=== PATIENT | female | born 1930 | race Caucasian/White ===

== ENCOUNTER 2018-07-25 01:02 | Inpatient (IN) | payer MEDICARE, BC ==
[2018-07-25 02:02] LABS: BASO % 0.5 % (0.0-1.0); EOS # 0.2 10^3/uL (0.0-0.50); EOS % 1.7 % (0.0-3.0); HEMATOCRIT 31.8 % (36.0-47.0); HEMOGLOBIN 10.6 g/dl (12.0-15.5); LYMPH # 1.6 10^3/uL (1.5-4.5); LYMPH % 18.1 % (24.0-44.0); MEAN CORPUSCULAR HEMOGLOBIN 34.6 pg (27.0-33.0); MEAN CORPUSCULAR HGB CONC 33.3 g/dl (32.0-36.5); MEAN CORPUSCULAR VOLUME 103.9 fl (80.0-96.0); MONO # 0.6 10^3/uL (0.0-0.8); MONO % 6.4 % (0.0-5.0); NEUTROPHILS # 6.4 10^3/uL (1.8-7.7); NEUTROPHILS % 72.3 % (36.0-66.0); PLATELET COUNT, AUTOMATED 132 10^3/uL (150-450); RED BLOOD COUNT 3.06 10^6/uL (4.00-5.40); RED CELL DISTRIBUTION WIDTH 15.2 % (11.5-14.5); WHITE BLOOD COUNT 8.8 10^3/uL (4.0-10.0)
[2018-07-25 02:07] LABS: VENOUS BASE EXCESS 1.4 (-2.0-2.0); VENOUS HCO3 24.8 MEQ/L (23.0-27.0); VENOUS O2 SATURATION 98.3 % (60.0-80.0); VENOUS PARTIAL PRESSURE CO2 35.2 mmHg (38.0-50.0); VENOUS PH 7.466 UNITS (7.330-7.430); VENOUS STANDARD HCO3 25.7 MEQ/L; VENOUS TOTAL CO2 25.9 MEQ/L (24.0-28.0)
[2018-07-25 02:13] LABS: BEDSIDE GLUCOSE 147 MG/DL (83-110)
[2018-07-25 02:30] LABS: LACTIC ACID SEPSIS PROTOCOL 1.8 MMOL/L (0.4-2.0)
[2018-07-25 03:16] LABS: KETONE, URINE AUTO RFX NEGATIVE (NEGATIVE); MUCUS, URINE RFX SMALL (NEGATIVE); RBC, URINE AUTO RFX 5 /HPF (0-3); SPECIFIC GRAVITY UR AUTO RFX 1.017 (1.002-1.035); SQUAM EPITHELIAL CELL UR AURFX 24 /HPF (0-6)
[2018-07-25 03:17] LABS: AMPHETAMINES LEVEL URINE NEGATIVE (NEGATIVE); BARBITURATES URINE NEGATIVE (NEGATIVE); BENZODIAZEPINES URINE NEGATIVE (NEGATIVE); CANNABINOIDS URINE NEGATIVE (NEGATIVE); COCAINE METABOLITE URINE NEGATIVE (NEGATIVE); LEUKOCYTE ESTERASE UR AUTO RFX 2+ (NEGATIVE); METHADONE URINE NEGATIVE (NEGATIVE); NITRITE, URINE AUTO RFX POSITIVE (NEGATIVE); OPIATES URINE NEGATIVE (NEGATIVE); PHENCYCLIDINE URINE NEGATIVE (NEGATIVE); WBC, URINE AUTO RFX 55 /HPF (0-3)
[2018-07-25 03:19] LABS: ACETAMINOPHEN LEVEL < 2.0 UG/ML (10.0-30.0); ALBUMIN/GLOBULIN RATIO 1.03 (1.00-1.93); ALKALINE PHOSPHATASE 60 U/L (45-117); ALT/SGPT 29 U/L (12-78); ANION GAP 9 MEQ/L (8-16); AST/SGOT 41 U/L (7-37); BILIRUBIN,DIRECT 0.1 MG/DL (0.0-0.2); BILIRUBIN,TOTAL 0.4 MG/DL (0.2-1.0); BLOOD UREA NITROGEN 26 MG/DL (7-18); CALCIUM LEVEL 8.2 MG/DL (8.8-10.2); CARBON DIOXIDE LEVEL 26 MEQ/L (21-32); CHLORIDE LEVEL 106 MEQ/L (98-107); CPK CREATINE PHOSPHOKINASE 325 U/L (26-192); CREATININE FOR GFR 1.51 MG/DL (0.55-1.30); ETHYL ALCOHOL (ETHANOL) < 0.003 % (0.000-0.010); GLOMERULAR FILTRATION RATE 34.6 (>32); GLUCOSE, FASTING 144 MG/DL (70-100); POTASSIUM SERUM 4.1 MEQ/L (3.5-5.1); SALICYLATE LEVEL < 1.7 MG/DL (5.0-30.0); SODIUM LEVEL 141 MEQ/L (136-145); TOTAL PROTEIN 5.9 GM/DL (6.4-8.2); TROPONIN I 0.05 NG/ML (< 0.10)
[2018-07-25] MEDS: NS 1,000 ML IV (03:45)
[2018-07-25 04:15] LABS: CK-MB VALUE MASS 3.7 NG/ML (<3.6); MB/CK RELATIVE INDEX 1.13 (< OR =4); OSMOLALITY SERUM 291 MOSM/KG (280-301)
[2018-07-25] MEDS: cefTRIAXone SOD 1 GM in D5W MINI-BAG PLUS 50 ML IV (04:19)
[2018-07-25 06:45] LABS: FREE T4 1.51 NG/DL (0.76-1.46)
[2018-07-25] MEDS: LEVOTHYROXINE 100MCG TABLET (0.1MG) PO (08:40)
[2018-07-25] MEDS: FUROSEMIDE 20 MG TAB PO (09:00)
[2018-07-25] MEDS: ALLOPURINOL 300 MG TAB PO (11:00)
[2018-07-25] MEDS: ASPIRIN 81 MG ENTERIC TAB PO (11:00)
[2018-07-25] MEDS: APIXABAN 2.5 MG TAB (ELIQUIS) PO ×2 (11:00→21:09)
[2018-07-25] MEDS: **hydrALAZINE HCL** 25 MG TAB PO ×2 (11:03→21:10)
[2018-07-25] MEDS: ACETAMINOPHEN TAB 650MG DOSE (2X325MG) PO ×2 (18:00→21:12)
[2018-07-25] MEDS: ATORVASTATIN 20 MG TAB PO (21:09)
[2018-07-26] MEDS: LEVOTHYROXINE 100MCG TABLET (0.1MG) PO (05:37)
[2018-07-26] MEDS: cefTRIAXone SOD 1 GM in D5W MINI-BAG PLUS 50 ML IV (05:37)
[2018-07-26 07:24] LABS: HEMATOCRIT 27.6 % (36.0-47.0); HEMOGLOBIN 9.1 g/dl (12.0-15.5); MEAN CORPUSCULAR HEMOGLOBIN 34.2 pg (27.0-33.0); MEAN CORPUSCULAR VOLUME 103.8 fl (80.0-96.0); PLATELET COUNT, AUTOMATED 123 10^3/uL (150-450); RED BLOOD COUNT 2.66 10^6/uL (4.00-5.40); RED CELL DISTRIBUTION WIDTH 15.3 % (11.5-14.5)
[2018-07-26 07:40] LABS: ANION GAP 6 MEQ/L (8-16); BLOOD UREA NITROGEN 21 MG/DL (7-18); CARBON DIOXIDE LEVEL 28 MEQ/L (21-32); CHLORIDE LEVEL 107 MEQ/L (98-107); CREATININE FOR GFR 1.47 MG/DL (0.55-1.30); GLOMERULAR FILTRATION RATE 35.7 (>32); GLUCOSE, FASTING 92 MG/DL (70-100); POTASSIUM SERUM 3.8 MEQ/L (3.5-5.1); SODIUM LEVEL 141 MEQ/L (136-145)
[2018-07-26] MEDS: APIXABAN 2.5 MG TAB (ELIQUIS) PO ×2 (08:54→20:05)
[2018-07-26] MEDS: ALLOPURINOL 300 MG TAB PO (08:54)
[2018-07-26] MEDS: ASPIRIN 81 MG ENTERIC TAB PO (08:54)
[2018-07-26] MEDS: INFLUENZA QUADRIVALENT PF VACCINE 0.5ML SYRINGE (90686) IM (08:55)
[2018-07-26] MEDS: ACETAMINOPHEN TAB 650MG DOSE (2X325MG) PO ×2 (14:09→20:05)
[2018-07-26] MEDS: ATORVASTATIN 20 MG TAB PO (20:05)
[2018-07-27] MEDS: cefTRIAXone SOD 1 GM in D5W MINI-BAG PLUS 50 ML IV (05:16)
[2018-07-27] MEDS: LEVOTHYROXINE 100MCG TABLET (0.1MG) PO (05:16)
[2018-07-27 07:12] LABS: HEMATOCRIT 27.8 % (36.0-47.0); HEMOGLOBIN 9.2 g/dl (12.0-15.5); MEAN CORPUSCULAR HEMOGLOBIN 33.8 pg (27.0-33.0); MEAN CORPUSCULAR HGB CONC 33.1 g/dl (32.0-36.5); MEAN CORPUSCULAR VOLUME 102.2 fl (80.0-96.0); PLATELET COUNT, AUTOMATED 146 10^3/uL (150-450); RED BLOOD COUNT 2.72 10^6/uL (4.00-5.40); RED CELL DISTRIBUTION WIDTH 15.5 % (11.5-14.5); WHITE BLOOD COUNT 6.2 10^3/uL (4.0-10.0)
[2018-07-27 07:25] LABS: ANION GAP 6 MEQ/L (8-16); BLOOD UREA NITROGEN 18 MG/DL (7-18); CALCIUM LEVEL 8.2 MG/DL (8.8-10.2); CARBON DIOXIDE LEVEL 26 MEQ/L (21-32); CHLORIDE LEVEL 110 MEQ/L (98-107); CREATININE FOR GFR 1.38 MG/DL (0.55-1.30); GLOMERULAR FILTRATION RATE 38.4 (>32); GLUCOSE, FASTING 86 MG/DL (70-100); POTASSIUM SERUM 4.1 MEQ/L (3.5-5.1); SODIUM LEVEL 142 MEQ/L (136-145)
[2018-07-27] MEDS ORDERED: E-Z-HD 98% w/w 340GM SUSP BTL As Ordered (09:03)
[2018-07-27] MEDS: ACETAMINOPHEN TAB 650MG DOSE (2X325MG) PO ×3 (09:03→20:16)
[2018-07-27] MEDS ORDERED: E-Z-PAQUE 96% w/w SUSP 176GM BTL As Ordered (09:03)
[2018-07-27] MEDS ORDERED: E-Z-GAS II EFFERVESCENT PACKET (SODIUM BICARB./CITRIC ACID/SIMETHICONE) As Ordered (09:03)
[2018-07-27] MEDS: APIXABAN 2.5 MG TAB (ELIQUIS) PO ×2 (09:03→20:16)
[2018-07-27] MEDS: ALLOPURINOL 300 MG TAB PO (09:03)
[2018-07-27] MEDS: ASPIRIN 81 MG ENTERIC TAB PO (09:04)
[2018-07-27] MEDS: SENOKOT S TAB PO ×2 (11:35→20:16)
[2018-07-27] MEDS: ATORVASTATIN 20 MG TAB PO (20:16)
[2018-07-28] MEDS: LEVOTHYROXINE 100MCG TABLET (0.1MG) PO (05:58)
[2018-07-28 05:59] LABS: HEMATOCRIT 29.4 % (36.0-47.0); HEMOGLOBIN 9.5 g/dl (12.0-15.5); MEAN CORPUSCULAR HEMOGLOBIN 34.1 pg (27.0-33.0); MEAN CORPUSCULAR HGB CONC 32.3 g/dl (32.0-36.5); MEAN CORPUSCULAR VOLUME 105.4 fl (80.0-96.0); PLATELET COUNT, AUTOMATED 155 10^3/uL (150-450); RED BLOOD COUNT 2.79 10^6/uL (4.00-5.40); RED CELL DISTRIBUTION WIDTH 15.4 % (11.5-14.5); WHITE BLOOD COUNT 6.8 10^3/uL (4.0-10.0)
[2018-07-28] MEDS: cefTRIAXone SOD 1 GM in D5W MINI-BAG PLUS 50 ML IV (06:03)
[2018-07-28 06:07] LABS: ANION GAP 8 MEQ/L (8-16); BLOOD UREA NITROGEN 16 MG/DL (7-18); CALCIUM LEVEL 8.3 MG/DL (8.8-10.2); CARBON DIOXIDE LEVEL 26 MEQ/L (21-32); CHLORIDE LEVEL 110 MEQ/L (98-107); CREATININE FOR GFR 1.28 MG/DL (0.55-1.30); GLOMERULAR FILTRATION RATE 41.9 (>32); GLUCOSE, FASTING 89 MG/DL (70-100); POTASSIUM SERUM 4.2 MEQ/L (3.5-5.1); SODIUM LEVEL 144 MEQ/L (136-145)
[2018-07-28] MEDS: ALLOPURINOL 300 MG TAB PO (10:32)
[2018-07-28] MEDS: SENOKOT S TAB PO ×2 (10:32→21:22)
[2018-07-28] MEDS: APIXABAN 2.5 MG TAB (ELIQUIS) PO ×2 (10:34→21:22)
[2018-07-28] MEDS: ASPIRIN 81 MG ENTERIC TAB PO (10:34)
[2018-07-28] MEDS: ACETAMINOPHEN TAB 650MG DOSE (2X325MG) PO ×2 (10:35→23:55)
[2018-07-28] MEDS: MIRALAX *UNIT DOSE* 17GM PACKET PO (11:53)
[2018-07-28] MEDS: amLODIPine 5 MG TAB PO (11:55)
[2018-07-28] MEDS: **hydrALAZINE HCL** 25 MG TAB PO ×2 (11:55→21:22)
[2018-07-28] MEDS: ATORVASTATIN 20 MG TAB PO (21:22)
[2018-07-29] MEDS: cefTRIAXone SOD 1 GM in D5W MINI-BAG PLUS 50 ML IV (05:29)
[2018-07-29] MEDS: LEVOTHYROXINE 100MCG TABLET (0.1MG) PO (05:29)
[2018-07-29 06:44] LABS: HEMATOCRIT 27.7 % (36.0-47.0); HEMOGLOBIN 9.1 g/dl (12.0-15.5); MEAN CORPUSCULAR HEMOGLOBIN 34.3 pg (27.0-33.0); MEAN CORPUSCULAR HGB CONC 32.9 g/dl (32.0-36.5); MEAN CORPUSCULAR VOLUME 104.5 fl (80.0-96.0); PLATELET COUNT, AUTOMATED 163 10^3/uL (150-450); RED BLOOD COUNT 2.65 10^6/uL (4.00-5.40); RED CELL DISTRIBUTION WIDTH 15.4 % (11.5-14.5); WHITE BLOOD COUNT 6.2 10^3/uL (4.0-10.0)
[2018-07-29 06:57] LABS: ANION GAP 10 MEQ/L (8-16); BLOOD UREA NITROGEN 16 MG/DL (7-18); CARBON DIOXIDE LEVEL 24 MEQ/L (21-32); CHLORIDE LEVEL 111 MEQ/L (98-107); CREATININE FOR GFR 1.32 MG/DL (0.55-1.30); GLOMERULAR FILTRATION RATE 40.4 (>32); GLUCOSE, FASTING 80 MG/DL (70-100); POTASSIUM SERUM 4.5 MEQ/L (3.5-5.1); SODIUM LEVEL 145 MEQ/L (136-145)
[2018-07-29] MEDS: SENOKOT S TAB PO ×2 (09:19→21:05)
[2018-07-29] MEDS: amLODIPine 5 MG TAB PO (09:19)
[2018-07-29] MEDS: APIXABAN 2.5 MG TAB (ELIQUIS) PO ×2 (09:19→21:05)
[2018-07-29] MEDS: ASPIRIN 81 MG ENTERIC TAB PO (09:20)
[2018-07-29] MEDS: **hydrALAZINE HCL** 25 MG TAB PO ×2 (09:20→21:05)
[2018-07-29] MEDS: ALLOPURINOL 300 MG TAB PO (09:20)
[2018-07-29] MEDS: FLEET ENEMA PR (15:34)
[2018-07-29] MEDS: ACETAMINOPHEN TAB 650MG DOSE (2X325MG) PO (15:34)
[2018-07-29] MEDS: ATORVASTATIN 20 MG TAB PO (21:05)
[2018-07-30] MEDS: LEVOTHYROXINE 100MCG TABLET (0.1MG) PO (05:13)
[2018-07-30 06:00] LABS: HEMATOCRIT 27.6 % (36.0-47.0); HEMOGLOBIN 9.3 g/dl (12.0-15.5); MEAN CORPUSCULAR HEMOGLOBIN 34.1 pg (27.0-33.0); MEAN CORPUSCULAR HGB CONC 33.7 g/dl (32.0-36.5); MEAN CORPUSCULAR VOLUME 101.1 fl (80.0-96.0); PLATELET COUNT, AUTOMATED 190 10^3/uL (150-450); RED BLOOD COUNT 2.73 10^6/uL (4.00-5.40); RED CELL DISTRIBUTION WIDTH 15.3 % (11.5-14.5)
[2018-07-30 06:17] LABS: ANION GAP 9 MEQ/L (8-16); BLOOD UREA NITROGEN 24 MG/DL (7-18); CALCIUM LEVEL 8.2 MG/DL (8.8-10.2); CARBON DIOXIDE LEVEL 25 MEQ/L (21-32); CHLORIDE LEVEL 109 MEQ/L (98-107); CREATININE FOR GFR 1.38 MG/DL (0.55-1.30); GLOMERULAR FILTRATION RATE 38.4 (>32); GLUCOSE, FASTING 92 MG/DL (70-100); POTASSIUM SERUM 4.2 MEQ/L (3.5-5.1); SODIUM LEVEL 143 MEQ/L (136-145)
[2018-07-30] MEDS: ACETAMINOPHEN TAB 650MG DOSE (2X325MG) PO ×3 (08:11→23:20)
[2018-07-30] MEDS: SENOKOT S TAB PO ×2 (08:11→21:20)
[2018-07-30] MEDS: **hydrALAZINE HCL** 25 MG TAB PO ×2 (08:12→21:20)
[2018-07-30] MEDS: ALLOPURINOL 300 MG TAB PO (08:13)
[2018-07-30] MEDS: amLODIPine 5 MG TAB PO (08:13)
[2018-07-30] MEDS: ASPIRIN 81 MG ENTERIC TAB PO (08:13)
[2018-07-30] MEDS: APIXABAN 2.5 MG TAB (ELIQUIS) PO ×2 (09:00→21:20)
[2018-07-30] MEDS: ATORVASTATIN 20 MG TAB PO (21:19)
[2018-07-31] MEDS: LEVOTHYROXINE 100MCG TABLET (0.1MG) PO (05:50)
[2018-07-31 06:01] LABS: HEMATOCRIT 27.2 % (36.0-47.0); MEAN CORPUSCULAR HEMOGLOBIN 33.5 pg (27.0-33.0); MEAN CORPUSCULAR HGB CONC 33.1 g/dl (32.0-36.5); MEAN CORPUSCULAR VOLUME 101.1 fl (80.0-96.0); PLATELET COUNT, AUTOMATED 195 10^3/uL (150-450); RED BLOOD COUNT 2.69 10^6/uL (4.00-5.40); RED CELL DISTRIBUTION WIDTH 15.3 % (11.5-14.5); WHITE BLOOD COUNT 5.9 10^3/uL (4.0-10.0)
[2018-07-31 06:04] LABS: ANION GAP 7 MEQ/L (8-16); BLOOD UREA NITROGEN 21 MG/DL (7-18); CALCIUM LEVEL 8.3 MG/DL (8.8-10.2); CARBON DIOXIDE LEVEL 25 MEQ/L (21-32); CHLORIDE LEVEL 113 MEQ/L (98-107); CREATININE FOR GFR 1.23 MG/DL (0.55-1.30); GLOMERULAR FILTRATION RATE 43.9 (>32); GLUCOSE, FASTING 84 MG/DL (70-100); POTASSIUM SERUM 4.2 MEQ/L (3.5-5.1); SODIUM LEVEL 145 MEQ/L (136-145)
[2018-07-31] MEDS: ACETAMINOPHEN TAB 650MG DOSE (2X325MG) PO ×3 (06:14→22:01)
[2018-07-31] MEDS: ASPIRIN 81 MG ENTERIC TAB PO (09:21)
[2018-07-31] MEDS: guaiFENesin ER 600 MG TAB PO ×2 (09:22→20:52)
[2018-07-31] MEDS: amLODIPine 5 MG TAB PO (09:22)
[2018-07-31] MEDS: APIXABAN 2.5 MG TAB (ELIQUIS) PO ×2 (09:22→20:52)
[2018-07-31] MEDS: ALLOPURINOL 300 MG TAB PO (09:22)
[2018-07-31] MEDS: SENOKOT S TAB PO ×2 (09:22→20:53)
[2018-07-31] MEDS: **hydrALAZINE HCL** 25 MG TAB PO ×2 (09:23→22:00)
[2018-07-31] MEDS: GASTROGRAFIN SOLUTION 30ML PO ×2 (11:47→12:18)
[2018-07-31] MEDS: AUGMENTIN 500 MG TAB PO ×2 (12:20→20:52)
[2018-07-31] MEDS ORDERED: ISOVUE-370 76% 100ML VIAL (Q9967) As Ordered (13:25)
[2018-07-31] MEDS: PANTOPRAZOLE 40MG TAB (PROTONIX) PO (17:41)
[2018-07-31] MEDS: SUCRALFATE SUSP 1GM/10ML UD PO ×2 (17:41→20:53)
[2018-07-31] MEDS: ATORVASTATIN 20 MG TAB PO (20:52)
[2018-08-01 05:48] LABS: HEMATOCRIT 28.5 % (36.0-47.0); HEMOGLOBIN 9.4 g/dl (12.0-15.5); MEAN CORPUSCULAR HEMOGLOBIN 34.1 pg (27.0-33.0); MEAN CORPUSCULAR VOLUME 103.3 fl (80.0-96.0); PLATELET COUNT, AUTOMATED 203 10^3/uL (150-450); RED BLOOD COUNT 2.76 10^6/uL (4.00-5.40); RED CELL DISTRIBUTION WIDTH 15.5 % (11.5-14.5); WHITE BLOOD COUNT 7.4 10^3/uL (4.0-10.0)
[2018-08-01] MEDS: ACETAMINOPHEN TAB 650MG DOSE (2X325MG) PO ×3 (05:58→20:44)
[2018-08-01] MEDS: LEVOTHYROXINE 100MCG TABLET (0.1MG) PO (05:59)
[2018-08-01 06:04] LABS: ANION GAP 9 MEQ/L (8-16); BLOOD UREA NITROGEN 20 MG/DL (7-18); CALCIUM LEVEL 8.3 MG/DL (8.8-10.2); CARBON DIOXIDE LEVEL 23 MEQ/L (21-32); CHLORIDE LEVEL 111 MEQ/L (98-107); CREATININE FOR GFR 1.19 MG/DL (0.55-1.30); GLOMERULAR FILTRATION RATE 45.6 (>32); GLUCOSE, FASTING 90 MG/DL (70-100); POTASSIUM SERUM 4.3 MEQ/L (3.5-5.1); SODIUM LEVEL 143 MEQ/L (136-145)
[2018-08-01] MEDS: PREPARATION H SUPP (HEMORRHOID) PR (10:16)
[2018-08-01] MEDS: guaiFENesin ER 600 MG TAB PO ×2 (10:16→20:45)
[2018-08-01] MEDS: SUCRALFATE SUSP 1GM/10ML UD PO ×4 (10:16→20:44)
[2018-08-01] MEDS: ASPIRIN 81 MG ENTERIC TAB PO (10:16)
[2018-08-01] MEDS: APIXABAN 2.5 MG TAB (ELIQUIS) PO ×2 (10:17→20:44)
[2018-08-01] MEDS: amLODIPine 5 MG TAB PO (10:17)
[2018-08-01] MEDS: PANTOPRAZOLE 40MG TAB (PROTONIX) PO (10:17)
[2018-08-01] MEDS: AUGMENTIN 500 MG TAB PO ×2 (10:17→20:44)
[2018-08-01] MEDS: **hydrALAZINE HCL** 25 MG TAB PO ×2 (10:18→20:44)
[2018-08-01] MEDS: ALLOPURINOL 300 MG TAB PO (10:18)
[2018-08-01] MEDS: SENOKOT S TAB PO ×2 (10:18→20:45)
[2018-08-01] MEDS: LIDOCAINE 5% (LIDODERM) PATCH TD (14:08)
[2018-08-01] MEDS: ATORVASTATIN 20 MG TAB PO (20:44)
[2018-08-01] MEDS: **NOTE PATIENT COMMENT** MISC XX (20:45)
[2018-08-02] MEDS: LEVOTHYROXINE 100MCG TABLET (0.1MG) PO (05:11)
[2018-08-02] MEDS: PANTOPRAZOLE 40MG TAB (PROTONIX) PO (09:10)
[2018-08-02] MEDS: SUCRALFATE SUSP 1GM/10ML UD PO ×4 (09:10→20:50)
[2018-08-02] MEDS: amLODIPine 5 MG TAB PO (09:10)
[2018-08-02] MEDS: AUGMENTIN 500 MG TAB PO ×2 (09:10→20:52)
[2018-08-02] MEDS: LIDOCAINE 5% (LIDODERM) PATCH TD (09:11)
[2018-08-02] MEDS: SENOKOT S TAB PO ×2 (09:11→20:52)
[2018-08-02] MEDS: ALLOPURINOL 300 MG TAB PO (09:11)
[2018-08-02] MEDS: **hydrALAZINE HCL** 25 MG TAB PO ×2 (09:11→20:51)
[2018-08-02] MEDS: ASPIRIN 81 MG ENTERIC TAB PO (09:11)
[2018-08-02] MEDS: guaiFENesin ER 600 MG TAB PO ×2 (09:11→20:52)
[2018-08-02] MEDS: ACETAMINOPHEN TAB 650MG DOSE (2X325MG) PO ×2 (09:12→20:51)
[2018-08-02] MEDS: PREPARATION H SUPP (HEMORRHOID) PR (12:03)
[2018-08-02] MEDS: **NOTE PATIENT COMMENT** MISC XX (20:52)
[2018-08-02] MEDS: ATORVASTATIN 20 MG TAB PO (20:52)
[2018-08-03] MEDS: LEVOTHYROXINE 100MCG TABLET (0.1MG) PO (05:35)
[2018-08-03] MEDS: SUCRALFATE SUSP 1GM/10ML UD PO ×4 (07:47→20:45)
[2018-08-03] MEDS: guaiFENesin ER 600 MG TAB PO ×2 (07:48→20:44)
[2018-08-03] MEDS: ASPIRIN 81 MG ENTERIC TAB PO (07:48)
[2018-08-03] MEDS: PREPARATION H SUPP (HEMORRHOID) PR ×2 (07:48→09:00)
[2018-08-03] MEDS: AUGMENTIN 500 MG TAB PO ×2 (07:48→20:45)
[2018-08-03] MEDS: SENOKOT S TAB PO ×2 (07:49→20:45)
[2018-08-03] MEDS: **hydrALAZINE HCL** 25 MG TAB PO ×2 (07:49→20:44)
[2018-08-03] MEDS: ALLOPURINOL 300 MG TAB PO (07:49)
[2018-08-03] MEDS: PANTOPRAZOLE 40MG TAB (PROTONIX) PO (07:50)
[2018-08-03] MEDS: amLODIPine 5 MG TAB PO (07:50)
[2018-08-03] MEDS: LIDOCAINE 5% (LIDODERM) PATCH TD (07:50)
[2018-08-03] MEDS: ACETAMINOPHEN TAB 650MG DOSE (2X325MG) PO ×4 (10:06→22:23)
[2018-08-03 10:40] LABS: HEMATOCRIT 32.1 % (36.0-47.0); HEMOGLOBIN 10.7 g/dl (12.0-15.5); MEAN CORPUSCULAR HEMOGLOBIN 33.5 pg (27.0-33.0); MEAN CORPUSCULAR HGB CONC 33.3 g/dl (32.0-36.5); MEAN CORPUSCULAR VOLUME 100.6 fl (80.0-96.0); PLATELET COUNT, AUTOMATED 255 10^3/uL (150-450); RED BLOOD COUNT 3.19 10^6/uL (4.00-5.40); RED CELL DISTRIBUTION WIDTH 15.2 % (11.5-14.5)
[2018-08-03 11:31] LABS: ANION GAP 7 MEQ/L (8-16); BLOOD UREA NITROGEN 21 MG/DL (7-18); CALCIUM LEVEL 8.5 MG/DL (8.8-10.2); CARBON DIOXIDE LEVEL 25 MEQ/L (21-32); CHLORIDE LEVEL 108 MEQ/L (98-107); CREATININE FOR GFR 1.38 MG/DL (0.55-1.30); GLOMERULAR FILTRATION RATE 38.4 (>32); GLUCOSE, FASTING 103 MG/DL (70-100); POTASSIUM SERUM 4.4 MEQ/L (3.5-5.1); SODIUM LEVEL 140 MEQ/L (136-145)
[2018-08-03 13:48] LABS: CARCINOEMBRYONIC ANTIGEN 3.5 NG/ML (<2.5)
[2018-08-03] MEDS: ATORVASTATIN 20 MG TAB PO (20:45)
[2018-08-03] MEDS: **NOTE PATIENT COMMENT** MISC XX (21:00)
[2018-08-04] MEDS: ACETAMINOPHEN TAB 650MG DOSE (2X325MG) PO (04:54)
[2018-08-04] MEDS: LEVOTHYROXINE 100MCG TABLET (0.1MG) PO (06:30)
[2018-08-04 07:28] LABS: HEMATOCRIT 28.8 % (36.0-47.0); HEMOGLOBIN 9.5 g/dl (12.0-15.5); MEAN CORPUSCULAR HEMOGLOBIN 32.6 pg (27.0-33.0); PLATELET COUNT, AUTOMATED 236 10^3/uL (150-450); RED BLOOD COUNT 2.91 10^6/uL (4.00-5.40); WHITE BLOOD COUNT 8.7 10^3/uL (4.0-10.0)
[2018-08-04 08:04] LABS: ANION GAP 8 MEQ/L (8-16); BLOOD UREA NITROGEN 23 MG/DL (7-18); CALCIUM LEVEL 8.2 MG/DL (8.8-10.2); CARBON DIOXIDE LEVEL 22 MEQ/L (21-32); CHLORIDE LEVEL 111 MEQ/L (98-107); CREATININE FOR GFR 1.17 MG/DL (0.55-1.30); GLOMERULAR FILTRATION RATE 46.5 (>32); GLUCOSE, FASTING 85 MG/DL (70-100); SODIUM LEVEL 141 MEQ/L (136-145)
[2018-08-04] MEDS ORDERED: traMADol 50 MG TAB PO (08:15)
[2018-08-04] MEDS: SUCRALFATE SUSP 1GM/10ML UD PO ×4 (08:41→20:43)
[2018-08-04] MEDS: SENOKOT S TAB PO ×2 (09:00→20:43)
[2018-08-04] MEDS: traMADol 50 MG TAB PO ×2 (09:06→15:17)
[2018-08-04] MEDS: LIDOCAINE 5% (LIDODERM) PATCH TD (09:14)
[2018-08-04] MEDS: ASPIRIN 81 MG ENTERIC TAB PO (09:14)
[2018-08-04] MEDS: AUGMENTIN 500 MG TAB PO ×2 (09:14→20:43)
[2018-08-04] MEDS: **hydrALAZINE HCL** 25 MG TAB PO ×2 (09:15→20:44)
[2018-08-04] MEDS: PANTOPRAZOLE 40MG TAB (PROTONIX) PO (09:15)
[2018-08-04] MEDS: ALLOPURINOL 300 MG TAB PO (09:20)
[2018-08-04] MEDS: guaiFENesin ER 600 MG TAB PO ×2 (09:21→20:43)
[2018-08-04] MEDS: amLODIPine 5 MG TAB PO (09:21)
[2018-08-04] MEDS: PREPARATION H SUPP (HEMORRHOID) PR (11:40)
[2018-08-04] MEDS: MOM 30ML SUSPENSION UDC PO (17:19)
[2018-08-04] MEDS ORDERED: PILL CRUSHER/CUTTER 1 EACH XX (20:00)
[2018-08-04] MEDS: ATORVASTATIN 20 MG TAB PO (20:43)
[2018-08-04] MEDS: PERCOCET 5MG/325MG TAB PO (20:44)
[2018-08-04] MEDS: **NOTE PATIENT COMMENT** MISC XX (20:45)
[2018-08-05] MEDS: LEVOTHYROXINE 100MCG TABLET (0.1MG) PO (04:58)
[2018-08-05 07:25] LABS: HEMATOCRIT 31.1 % (36.0-47.0); HEMOGLOBIN 10.1 g/dl (12.0-15.5); MEAN CORPUSCULAR HGB CONC 32.5 g/dl (32.0-36.5); MEAN CORPUSCULAR VOLUME 101.6 fl (80.0-96.0); PLATELET COUNT, AUTOMATED 250 10^3/uL (150-450); RED BLOOD COUNT 3.06 10^6/uL (4.00-5.40); RED CELL DISTRIBUTION WIDTH 15.3 % (11.5-14.5); WHITE BLOOD COUNT 8.1 10^3/uL (4.0-10.0)
[2018-08-05] MEDS: SUCRALFATE SUSP 1GM/10ML UD PO ×4 (07:30→20:33)
[2018-08-05 07:56] LABS: ANION GAP 7 MEQ/L (8-16); BLOOD UREA NITROGEN 22 MG/DL (7-18); CALCIUM LEVEL 8.4 MG/DL (8.8-10.2); CARBON DIOXIDE LEVEL 23 MEQ/L (21-32); CHLORIDE LEVEL 113 MEQ/L (98-107); GLOMERULAR FILTRATION RATE 45.1 (>32); GLUCOSE, FASTING 78 MG/DL (70-100); POTASSIUM SERUM 4.5 MEQ/L (3.5-5.1); SODIUM LEVEL 143 MEQ/L (136-145)
[2018-08-05] MEDS: FLEET ENEMA PR (08:29)
[2018-08-05] MEDS: AUGMENTIN 500 MG TAB PO ×2 (09:00→20:33)
[2018-08-05] MEDS: APIXABAN 2.5 MG TAB (ELIQUIS) PO ×2 (09:00→20:35)
[2018-08-05] MEDS: guaiFENesin ER 600 MG TAB PO ×2 (09:00→20:34)
[2018-08-05] MEDS: amLODIPine 5 MG TAB PO (09:00)
[2018-08-05] MEDS: **hydrALAZINE HCL** 25 MG TAB PO ×2 (09:00→20:34)
[2018-08-05] MEDS: ASPIRIN 81 MG ENTERIC TAB PO (09:00)
[2018-08-05] MEDS: PERCOCET 5MG/325MG TAB PO ×2 (10:01→20:34)
[2018-08-05] MEDS: LIDOCAINE 5% (LIDODERM) PATCH TD (10:10)
[2018-08-05] MEDS: ALLOPURINOL 300 MG TAB PO (10:11)
[2018-08-05] MEDS: PANTOPRAZOLE 40MG TAB (PROTONIX) PO (10:11)
[2018-08-05] MEDS: SENOKOT S TAB PO ×2 (10:11→20:33)
[2018-08-05] MEDS: PREPARATION H SUPP (HEMORRHOID) PR (11:32)
[2018-08-05] MEDS: **NOTE PATIENT COMMENT** MISC XX (20:35)
[2018-08-05] MEDS: ATORVASTATIN 20 MG TAB PO (20:35)
[2018-08-06] MEDS: LEVOTHYROXINE 100MCG TABLET (0.1MG) PO (05:48)
[2018-08-06 07:19] LABS: HEMATOCRIT 27.9 % (36.0-47.0); HEMOGLOBIN 8.8 g/dl (12.0-15.5); MEAN CORPUSCULAR HEMOGLOBIN 32.8 pg (27.0-33.0); MEAN CORPUSCULAR HGB CONC 31.5 g/dl (32.0-36.5); MEAN CORPUSCULAR VOLUME 104.1 fl (80.0-96.0); PLATELET COUNT, AUTOMATED 229 10^3/uL (150-450); RED BLOOD COUNT 2.68 10^6/uL (4.00-5.40); RED CELL DISTRIBUTION WIDTH 15.4 % (11.5-14.5); WHITE BLOOD COUNT 6.8 10^3/uL (4.0-10.0)
[2018-08-06 07:31] LABS: ANION GAP 5 MEQ/L (8-16); BLOOD UREA NITROGEN 23 MG/DL (7-18); C REACTIVE PROTEIN QUANTITATIV 2.15 MG/DL (0.00-0.30); CALCIUM LEVEL 8.1 MG/DL (8.8-10.2); CARBON DIOXIDE LEVEL 23 MEQ/L (21-32); CHLORIDE LEVEL 113 MEQ/L (98-107); CREATININE FOR GFR 1.08 MG/DL (0.55-1.30); GLUCOSE, FASTING 75 MG/DL (70-100); POTASSIUM SERUM 4.6 MEQ/L (3.5-5.1); SODIUM LEVEL 141 MEQ/L (136-145)
[2018-08-06] MEDS: SUCRALFATE SUSP 1GM/10ML UD PO ×4 (07:47→20:50)
[2018-08-06] MEDS: guaiFENesin ER 600 MG TAB PO ×2 (09:31→20:50)
[2018-08-06] MEDS: AUGMENTIN 500 MG TAB PO ×2 (09:32→20:50)
[2018-08-06] MEDS: ALLOPURINOL 300 MG TAB PO (09:33)
[2018-08-06] MEDS: APIXABAN 2.5 MG TAB (ELIQUIS) PO ×2 (09:33→20:53)
[2018-08-06] MEDS: SENOKOT S TAB PO ×2 (09:33→20:52)
[2018-08-06] MEDS: ASPIRIN 81 MG ENTERIC TAB PO (09:34)
[2018-08-06] MEDS: **hydrALAZINE HCL** 25 MG TAB PO ×2 (09:34→20:51)
[2018-08-06] MEDS: PREPARATION H SUPP (HEMORRHOID) PR (09:35)
[2018-08-06] MEDS: PANTOPRAZOLE 40MG TAB (PROTONIX) PO (09:35)
[2018-08-06] MEDS: amLODIPine 5 MG TAB PO (09:35)
[2018-08-06] MEDS: LIDOCAINE 5% (LIDODERM) PATCH TD (09:36)
[2018-08-06] MEDS: PERCOCET 5MG/325MG TAB PO ×2 (13:38→20:52)
[2018-08-06] MEDS: ATORVASTATIN 20 MG TAB PO (20:50)
[2018-08-06] MEDS: **NOTE PATIENT COMMENT** MISC XX (20:53)
[2018-08-07] MEDS: PERCOCET 5MG/325MG TAB PO ×3 (05:27→21:04)
[2018-08-07] MEDS: LEVOTHYROXINE 100MCG TABLET (0.1MG) PO (05:27)
[2018-08-07 06:53] LABS: HEMATOCRIT 28.5 % (36.0-47.0); HEMOGLOBIN 9.2 g/dl (12.0-15.5); MEAN CORPUSCULAR HGB CONC 32.3 g/dl (32.0-36.5); MEAN CORPUSCULAR VOLUME 102.2 fl (80.0-96.0); PLATELET COUNT, AUTOMATED 245 10^3/uL (150-450); RED BLOOD COUNT 2.79 10^6/uL (4.00-5.40); WHITE BLOOD COUNT 7.7 10^3/uL (4.0-10.0)
[2018-08-07 07:16] LABS: ANION GAP 6 MEQ/L (8-16); BLOOD UREA NITROGEN 24 MG/DL (7-18); CALCIUM LEVEL 8.4 MG/DL (8.8-10.2); CARBON DIOXIDE LEVEL 25 MEQ/L (21-32); CHLORIDE LEVEL 110 MEQ/L (98-107); GLOMERULAR FILTRATION RATE 49.9 (>32); GLUCOSE, FASTING 81 MG/DL (70-100); POTASSIUM SERUM 4.6 MEQ/L (3.5-5.1); SODIUM LEVEL 141 MEQ/L (136-145)
[2018-08-07] MEDS: PREPARATION H SUPP (HEMORRHOID) PR ×2 (09:00→09:20)
[2018-08-07] MEDS: SENOKOT S TAB PO ×2 (09:11→21:03)
[2018-08-07] MEDS: SUCRALFATE SUSP 1GM/10ML UD PO ×4 (09:11→21:03)
[2018-08-07] MEDS: guaiFENesin ER 600 MG TAB PO ×2 (09:11→21:03)
[2018-08-07] MEDS: AUGMENTIN 500 MG TAB PO (09:12)
[2018-08-07] MEDS: ASPIRIN 81 MG ENTERIC TAB PO (09:12)
[2018-08-07] MEDS: amLODIPine 10 MG TAB PO (09:12)
[2018-08-07] MEDS: PANTOPRAZOLE 40MG TAB (PROTONIX) PO (09:13)
[2018-08-07] MEDS: **hydrALAZINE HCL** 25 MG TAB PO ×2 (09:13→21:08)
[2018-08-07] MEDS: ALLOPURINOL 300 MG TAB PO (09:13)
[2018-08-07] MEDS: APIXABAN 2.5 MG TAB (ELIQUIS) PO ×2 (09:13→21:03)
[2018-08-07] MEDS: LIDOCAINE 5% (LIDODERM) PATCH TD (09:15)
[2018-08-07 11:21] LABS: BEDSIDE GLUCOSE 96 MG/DL (83-110)
[2018-08-07] MEDS: FUROSEMIDE 20 MG TAB PO (18:10)
[2018-08-07] MEDS: **NOTE PATIENT COMMENT** MISC XX (21:00)
[2018-08-07] MEDS: ATORVASTATIN 20 MG TAB PO (21:03)
[2018-08-08] MEDS: LEVOTHYROXINE 100MCG TABLET (0.1MG) PO (06:17)
[2018-08-08 06:18] LABS: HEMATOCRIT 31.2 % (36.0-47.0); HEMOGLOBIN 10.1 g/dl (12.0-15.5); MEAN CORPUSCULAR HEMOGLOBIN 32.9 pg (27.0-33.0); MEAN CORPUSCULAR HGB CONC 32.4 g/dl (32.0-36.5); MEAN CORPUSCULAR VOLUME 101.6 fl (80.0-96.0); PLATELET COUNT, AUTOMATED 259 10^3/uL (150-450); RED BLOOD COUNT 3.07 10^6/uL (4.00-5.40); RED CELL DISTRIBUTION WIDTH 15.1 % (11.5-14.5); WHITE BLOOD COUNT 8.4 10^3/uL (4.0-10.0)
[2018-08-08] MEDS: PERCOCET 5MG/325MG TAB PO ×3 (06:18→20:51)
[2018-08-08 06:46] LABS: ANION GAP 6 MEQ/L (8-16); BLOOD UREA NITROGEN 24 MG/DL (7-18); CALCIUM LEVEL 8.6 MG/DL (8.8-10.2); CARBON DIOXIDE LEVEL 26 MEQ/L (21-32); CHLORIDE LEVEL 109 MEQ/L (98-107); CREATININE FOR GFR 1.24 MG/DL (0.55-1.30); GLOMERULAR FILTRATION RATE 43.5 (>32); GLUCOSE, FASTING 76 MG/DL (70-100); POTASSIUM SERUM 4.6 MEQ/L (3.5-5.1); SODIUM LEVEL 141 MEQ/L (136-145)
[2018-08-08] MEDS: SUCRALFATE SUSP 1GM/10ML UD PO ×4 (08:01→20:49)
[2018-08-08] MEDS: **hydrALAZINE HCL** 25 MG TAB PO ×2 (08:02→20:49)
[2018-08-08] MEDS: APIXABAN 2.5 MG TAB (ELIQUIS) PO ×2 (08:02→20:49)
[2018-08-08] MEDS: amLODIPine 10 MG TAB PO (08:02)
[2018-08-08] MEDS: ALLOPURINOL 300 MG TAB PO (08:03)
[2018-08-08] MEDS: ASPIRIN 81 MG ENTERIC TAB PO (08:03)
[2018-08-08] MEDS: PREPARATION H SUPP (HEMORRHOID) PR (08:03)
[2018-08-08] MEDS: guaiFENesin ER 600 MG TAB PO ×2 (08:03→20:49)
[2018-08-08] MEDS: SENOKOT S TAB PO ×2 (08:03→20:49)
[2018-08-08] MEDS: FUROSEMIDE 20 MG TAB PO ×2 (08:03→17:47)
[2018-08-08] MEDS: PANTOPRAZOLE 40MG TAB (PROTONIX) PO (08:03)
[2018-08-08] MEDS: LIDOCAINE 5% (LIDODERM) PATCH TD (08:04)
[2018-08-08] MEDS: ATORVASTATIN 20 MG TAB PO (20:49)
[2018-08-08] MEDS: **NOTE PATIENT COMMENT** MISC XX (20:51)
[2018-08-09] MEDS: LEVOTHYROXINE 100MCG TABLET (0.1MG) PO (05:42)
[2018-08-09] MEDS: PERCOCET 5MG/325MG TAB PO ×3 (05:43→21:13)
[2018-08-09 07:46] LABS: HEMATOCRIT 28.6 % (36.0-47.0); HEMOGLOBIN 9.4 g/dl (12.0-15.5); MEAN CORPUSCULAR HEMOGLOBIN 33.2 pg (27.0-33.0); MEAN CORPUSCULAR HGB CONC 32.9 g/dl (32.0-36.5); MEAN CORPUSCULAR VOLUME 101.1 fl (80.0-96.0); PLATELET COUNT, AUTOMATED 240 10^3/uL (150-450); RED BLOOD COUNT 2.83 10^6/uL (4.00-5.40); RED CELL DISTRIBUTION WIDTH 15.1 % (11.5-14.5); WHITE BLOOD COUNT 7.2 10^3/uL (4.0-10.0)
[2018-08-09 08:13] LABS: ANION GAP 10 MEQ/L (8-16); BLOOD UREA NITROGEN 25 MG/DL (7-18); CALCIUM LEVEL 8.5 MG/DL (8.8-10.2); CARBON DIOXIDE LEVEL 24 MEQ/L (21-32); CHLORIDE LEVEL 109 MEQ/L (98-107); CREATININE FOR GFR 1.18 MG/DL (0.55-1.30); GLUCOSE, FASTING 79 MG/DL (70-100); SODIUM LEVEL 143 MEQ/L (136-145)
[2018-08-09] MEDS: amLODIPine 10 MG TAB PO (08:34)
[2018-08-09] MEDS: ASPIRIN 81 MG ENTERIC TAB PO (08:34)
[2018-08-09] MEDS: LIDOCAINE 5% (LIDODERM) PATCH TD (08:34)
[2018-08-09] MEDS: SENOKOT S TAB PO ×2 (08:34→21:10)
[2018-08-09] MEDS: SUCRALFATE SUSP 1GM/10ML UD PO ×4 (08:34→21:09)
[2018-08-09] MEDS: PREPARATION H SUPP (HEMORRHOID) PR (08:34)
[2018-08-09] MEDS: FUROSEMIDE 20 MG TAB PO ×2 (08:35→18:38)
[2018-08-09] MEDS: guaiFENesin ER 600 MG TAB PO ×2 (08:35→21:09)
[2018-08-09] MEDS: APIXABAN 2.5 MG TAB (ELIQUIS) PO ×2 (08:35→21:09)
[2018-08-09] MEDS: PANTOPRAZOLE 40MG TAB (PROTONIX) PO (08:35)
[2018-08-09] MEDS: **hydrALAZINE HCL** 25 MG TAB PO ×2 (08:35→21:10)
[2018-08-09] MEDS: ALLOPURINOL 300 MG TAB PO (08:35)
[2018-08-09] MEDS: ATORVASTATIN 20 MG TAB PO (21:10)
[2018-08-09] MEDS: **NOTE PATIENT COMMENT** MISC XX (21:12)
[2018-08-10] MEDS: LEVOTHYROXINE 100MCG TABLET (0.1MG) PO (06:12)
[2018-08-10] MEDS: PERCOCET 5MG/325MG TAB PO (06:13)
[2018-08-10] MEDS: PANTOPRAZOLE 40MG TAB (PROTONIX) PO (08:59)
[2018-08-10] MEDS: LIDOCAINE 5% (LIDODERM) PATCH TD (08:59)
[2018-08-10] MEDS: SENOKOT S TAB PO ×2 (08:59→22:01)
[2018-08-10] MEDS: SUCRALFATE SUSP 1GM/10ML UD PO ×4 (08:59→22:01)
[2018-08-10] MEDS: guaiFENesin ER 600 MG TAB PO ×2 (08:59→22:00)
[2018-08-10] MEDS: **hydrALAZINE HCL** 25 MG TAB PO ×2 (08:59→22:01)
[2018-08-10] MEDS: amLODIPine 10 MG TAB PO (08:59)
[2018-08-10] MEDS: PREPARATION H SUPP (HEMORRHOID) PR (09:00)
[2018-08-10] MEDS: ASPIRIN 81 MG ENTERIC TAB PO (09:00)
[2018-08-10] MEDS: ALLOPURINOL 300 MG TAB PO (09:00)
[2018-08-10] MEDS: FUROSEMIDE 20 MG TAB PO ×2 (09:00→17:07)
[2018-08-10] MEDS: APIXABAN 2.5 MG TAB (ELIQUIS) PO ×2 (09:00→22:01)
[2018-08-10] MEDS: **NOTE PATIENT COMMENT** MISC XX (21:00)
[2018-08-10] MEDS: ATORVASTATIN 20 MG TAB PO (22:00)
[2018-08-11] MEDS: LEVOTHYROXINE 100MCG TABLET (0.1MG) PO (05:38)
[2018-08-11] MEDS: PREPARATION H SUPP (HEMORRHOID) PR (09:00)
[2018-08-11] MEDS: SUCRALFATE SUSP 1GM/10ML UD PO (09:31)
[2018-08-11] MEDS: **hydrALAZINE HCL** 25 MG TAB PO (10:03)
[2018-08-11] MEDS: ALLOPURINOL 300 MG TAB PO (10:03)
[2018-08-11] MEDS: SENOKOT S TAB PO (10:04)
[2018-08-11] MEDS: ASPIRIN 81 MG ENTERIC TAB PO (10:04)
[2018-08-11] MEDS: APIXABAN 2.5 MG TAB (ELIQUIS) PO (10:04)
[2018-08-11] MEDS: PANTOPRAZOLE 40MG TAB (PROTONIX) PO (10:04)
[2018-08-11] MEDS: FUROSEMIDE 20 MG TAB PO (10:04)
[2018-08-11] MEDS: amLODIPine 10 MG TAB PO (10:05)
[2018-08-11] MEDS: guaiFENesin ER 600 MG TAB PO (10:05)
[2018-08-11] MEDS: LIDOCAINE 5% (LIDODERM) PATCH TD (10:07)
== END 2018-08-11 11:30 | disposition home health service (06) | DRG 689 ==
LOC: M ED 01:02 → M ED INP 05:15 → M MS5PR 06:45
PROC: 0DJD8ZZ Inspection of Lower Intestinal Tract, Via Natural or Artificial Opening Endoscopic (ICD-10-PCS; principal; 2018-08-05 12:30)
DX: N39.0 Urinary tract infection, site not specified (principal); J69.0 Pneumonitis due to inhalation of food and vomit; I42.0 Dilated cardiomyopathy; S32.010A Wedge compression fracture of first lumbar vertebra, initial encounter for closed fracture; I13.0 Hypertensive heart and chronic kidney disease with heart failure and stage 1 through stage 4 chronic kidney disease, or unspecified chronic kidney disease; N18.9 Chronic kidney disease, unspecified; K22.5 Diverticulum of esophagus, acquired; I50.9 Heart failure, unspecified; I95.1 Orthostatic hypotension; K57.30 Diverticulosis of large intestine without perforation or abscess without bleeding; S01.01XA Laceration without foreign body of scalp, initial encounter; K64.1 Second degree hemorrhoids; K64.2 Third degree hemorrhoids; E55.9 Vitamin D deficiency, unspecified; M54.5 Low back pain; E78.5 Hyperlipidemia, unspecified; R29.6 Repeated falls; M10.9 Gout, unspecified; I48.91 Unspecified atrial fibrillation; E03.9 Hypothyroidism, unspecified; I69.391 Dysphagia following cerebral infarction; R13.12 Dysphagia, oropharyngeal phase; Z95.810 Presence of automatic (implantable) cardiac defibrillator; Z86.711 Personal history of pulmonary embolism; Z90.710 Acquired absence of both cervix and uterus; Z79.82 Long term (current) use of aspirin; Z79.01 Long term (current) use of anticoagulants; Z79.899 Other long term (current) drug therapy; W01.0XXA Fall on same level from slipping, tripping and stumbling without subsequent striking against object, initial encounter; Y92.009 Unspecified place in unspecified non-institutional (private) residence as the place of occurrence of the external cause; Y93.01 Activity, walking, marching and hiking

== ENCOUNTER → 2018-08-16 | Outpatient (REF) ==
[2018-08-16 08:21] LABS: ANION GAP 9 MEQ/L (8-16); BLOOD UREA NITROGEN 26 MG/DL (7-18); CALCIUM LEVEL 8.9 MG/DL (8.8-10.2); CARBON DIOXIDE LEVEL 30 MEQ/L (21-32); CHLORIDE LEVEL 106 MEQ/L (98-107); CREATININE FOR GFR 1.37 MG/DL (0.55-1.30); FERRITIN 35 NG/ML (8-252); GLOMERULAR FILTRATION RATE 38.7 (>32); GLUCOSE, FASTING 78 MG/DL (70-100); IRON (FE) 54 UG/DL (50-170); POTASSIUM SERUM 4.1 MEQ/L (3.5-5.1); SODIUM LEVEL 145 MEQ/L (136-145); TOTAL IRON BINDING CAPACITY 270 UG/DL (250-450)
[2018-08-16 08:47] LABS: ESTIMATED AVERAGE GLUCOSE 105 MG/DL (60-110); HEMOGLOBIN A1c 5.3 %
[2018-08-16 11:44] LABS: FOLATE 7.3 NG/ML (>5.4)
== END ==
LOC: SKLAB7 07:00
DX: E11.9 Type 2 diabetes mellitus without complications (principal); D64.9 Anemia, unspecified

== ENCOUNTER → 2018-09-01 | Outpatient (REF) | LOC: SKLAB7 10:09 | DX: M51.36 Other intervertebral disc degeneration, lumbar region (principal); M41.80 Other forms of scoliosis, site unspecified; Z87.81 Personal history of (healed) traumatic fracture ==

== ENCOUNTER 2018-09-06 06:07 | Inpatient (IN) | payer MEDICARE, BC ==
[2018-09-06] MEDS: CETACAINE SPRAY 5GM As Ordered (07:13)
[2018-09-06] MEDS ORDERED: PROPOFOL 200 MG/20 ML VIAL As Ordered (07:14)
[2018-09-06] MEDS ORDERED: LIDOCAINE 2% INJ 100 MG/5 ML SDV (FOR ANES.) As Ordered (07:14)
[2018-09-06] MEDS ORDERED: ROCURONIUM BROMIDE 50 MG/5 ML VIAL As Ordered (07:14)
[2018-09-06] MEDS ORDERED: MIDAZOLAM INJ 2 MG/2 ML VIAL (J2250) As Ordered (07:14)
[2018-09-06] MEDS ORDERED: fentaNYL 100 MCG/2 ML INJECTION (J3010) As Ordered (07:15)
[2018-09-06] MEDS ORDERED: dexameTHASONE 4 MG/ML 1ML VIAL (J1100) As Ordered (07:19)
[2018-09-06] MEDS ORDERED: CARVedilol 6.25 MG TAB As Ordered (07:21)
[2018-09-06] MEDS: LR 1,000 ML IV ×4 (07:30→22:06)
[2018-09-06] MEDS ORDERED: NEOSTIGMINE 10 MG/10 ML VIAL (J2710) As Ordered (08:16)
[2018-09-06] MEDS ORDERED: ONDANSETRON 4MG/2ML VIAL (J2405) As Ordered (08:16)
[2018-09-06] MEDS ORDERED: GLYCOPYRROLATE INJ 0.2 MG/ML 2 ML VIAL As Ordered (08:16)
[2018-09-06] MEDS ORDERED: PERCOCET 5MG/325MG TAB PO (09:15)
[2018-09-06] MEDS ORDERED: HYDROMORPHONE HCL 0.5 MG/ 0.5 ML SYRINGE (J1170 PER 1) IV (09:15)
[2018-09-06] MEDS ORDERED: ONDANSETRON 4MG/2ML VIAL (J2405) IV (09:15)
[2018-09-06] MEDS ORDERED: fentaNYL 100 MCG/2 ML INJECTION (J3010) IV (09:15)
[2018-09-06] MEDS: NORCO, ANEXSIA 5/325MG TABLET (HYDROcodone/ACETAMINOPHEN) PO (19:59)
[2018-09-07 09:23] LABS: HEMATOCRIT 29.2 % (36.0-47.0); HEMOGLOBIN 9.1 g/dl (12.0-15.5); MEAN CORPUSCULAR HEMOGLOBIN 32.6 pg (27.0-33.0); MEAN CORPUSCULAR HGB CONC 31.2 g/dl (32.0-36.5); MEAN CORPUSCULAR VOLUME 104.7 fl (80.0-96.0); PLATELET COUNT, AUTOMATED 167 10^3/uL (150-450); RED BLOOD COUNT 2.79 10^6/uL (4.00-5.40); RED CELL DISTRIBUTION WIDTH 15.2 % (11.5-14.5); WHITE BLOOD COUNT 12.9 10^3/uL (4.0-10.0)
[2018-09-07 09:48] LABS: ALBUMIN 2.4 GM/DL (3.2-5.2); ALBUMIN/GLOBULIN RATIO 0.75 (1.00-1.93); ALKALINE PHOSPHATASE 80 U/L (45-117); ALT/SGPT 20 U/L (12-78); ANION GAP 4 MEQ/L (8-16); AST/SGOT 25 U/L (7-37); BILIRUBIN,TOTAL 0.4 MG/DL (0.2-1.0); BLOOD UREA NITROGEN 36 MG/DL (7-18); CALCIUM LEVEL 8.2 MG/DL (8.8-10.2); CARBON DIOXIDE LEVEL 31 MEQ/L (21-32); CHLORIDE LEVEL 110 MEQ/L (98-107); CREATININE FOR GFR 1.45 MG/DL (0.55-1.30); GLOMERULAR FILTRATION RATE 36.3 (>32); GLUCOSE, FASTING 82 MG/DL (70-100); MAGNESIUM LEVEL 2.5 MG/DL (1.8-2.4); POTASSIUM SERUM 4.8 MEQ/L (3.5-5.1); SODIUM LEVEL 145 MEQ/L (136-145); TOTAL PROTEIN 5.6 GM/DL (6.4-8.2)
[2018-09-07] MEDS ORDERED: MOM 30ML SUSPENSION UDC PO (10:30)
[2018-09-07] MEDS ORDERED: BISACODYL 10 MG SUPP PR (10:30)
[2018-09-07] MEDS ORDERED: ACETAMINOPHEN TAB 650MG DOSE (2X325MG) PO (10:30)
[2018-09-07] MEDS: LR 1,000 ML IV (10:35)
[2018-09-07] MEDS: NORCO, ANEXSIA 5/325MG TABLET (HYDROcodone/ACETAMINOPHEN) PO ×2 (10:35→14:39)
[2018-09-07] MEDS: LEVOTHYROXINE 100MCG TABLET (0.1MG) PO (11:28)
[2018-09-07] MEDS: CARVedilol 6.25 MG TAB PO ×2 (11:28→11:30)
[2018-09-07] MEDS: OMEPRAZOLE 20 MG CAP PO (11:30)
[2018-09-07] MEDS: MAGNESIUM OXIDE 400 MG TAB (MAG-OX) PO (11:30)
[2018-09-07] MEDS ORDERED: ATORVASTATIN 20 MG TAB PO (21:00)
== END 2018-09-07 15:57 | DRG 327 ==
LOC: M SDC 06:07 → M MSPAV 09:37 → M SDC 09:39 → M MSPAV 09:40
PROC: 0DQ58ZZ Repair Esophagus, Via Natural or Artificial Opening Endoscopic (ICD-10-PCS; principal; 2018-09-06 07:30)
DX: K22.5 Diverticulum of esophagus, acquired (principal); I13.0 Hypertensive heart and chronic kidney disease with heart failure and stage 1 through stage 4 chronic kidney disease, or unspecified chronic kidney disease; I48.91 Unspecified atrial fibrillation; E03.9 Hypothyroidism, unspecified; M10.9 Gout, unspecified; N18.9 Chronic kidney disease, unspecified; K21.9 Gastro-esophageal reflux disease without esophagitis; E78.5 Hyperlipidemia, unspecified; I50.9 Heart failure, unspecified; Z86.711 Personal history of pulmonary embolism; Z95.810 Presence of automatic (implantable) cardiac defibrillator; Z86.73 Personal history of transient ischemic attack (TIA), and cerebral infarction without residual deficits; Z98.49 Cataract extraction status, unspecified eye; Z79.01 Long term (current) use of anticoagulants; Z79.82 Long term (current) use of aspirin; Z79.899 Other long term (current) drug therapy

== ENCOUNTER → 2018-09-08 | Outpatient (REF) ==
[2018-09-08 09:32] LABS: TOTAL 25(OH) VITAMIN D 48.7 NG/ML (30.0-100.0)
== END ==
LOC: SKLAB7 07:32
DX: E55.9 Vitamin D deficiency, unspecified (principal)